=== PATIENT | male | born 1975 | race Caucasian/White ===

== ENCOUNTER 2016-09-25 16:52 | Inpatient (IN) | payer OTHER ==
--- NOTE | 2015-09-28 22:21 | NUR ---
MEDICATED WITH VANCOMYCIN BY ERIKA MORRIS. PATIENT RESTING IN BED, NO COMPLAINT OF PAIN 0/10.
[~2016-09-25] VITALS: Ht 193 cm; Wt 95.3 kg
[2016-09-25 16:55] VITALS: BP 129/87
--- NOTE | 2016-09-25 17:36 | NUR ---
PATIENT BIB EMS FROM [facility]ELD FOR LEFT EYE SWELLING AWAKE AND ALERT, TO LOBBY AWAITING BED ASSIGNMENT.
--- NOTE | 2016-09-25 18:32 | NUR ---
Patient ambulated to bed 7. RN evaluating patient at bedside.
--- NOTE | 2016-09-25 18:40 | NUR ---
PT BIB SELF C/O LEFT EYE PAIN X 2 DAYS AND WOUND ON L UPPER LEG X 1 MONTH; PT IS A&OX4, RR ARE EVEN AND UNLABORED; PT DENIES ANY CP OR SOB; ABD SOFT AND NON-TENDER TO TOUCH; PT DENIES ANY N/V/D OR URINARY COMPLAINTS; REDNESS AND SWELLING NOTED TO LEFT EYE; AWAITING FOR ER MD EVUALATION; ALL NEEDS MET AT THIS TIME; PROVIDED PT WITH WARM BLANKET; HOB ELEVATED FOR COMFORT; WILL CONTINUE TO MONITOR
--- NOTE | 2016-09-25 19:09 | NUR ---
precision agriculture technician at bedside.
--- NOTE | 2016-09-25 19:33 | NUR ---
X-ray at bedside.
--- NOTE | 2016-09-25 19:34 | NUR ---
Assumed care of patient. Pt in bed, resting comfortably at this time. VSS.
[2016-09-25 19:35] LABS: HEMATOCRIT 39.9 % (36-52); HEMOGLOBIN 12.8 g/dL (12.0-18.0); MEAN CORPUSCULAR HEMOGLOBIN 27 pg (27-31); MEAN CORPUSCULAR HGB CONC 32 g/dL (33-37); MEAN CORPUSCULAR VOLUME 85 fL (80-94); PLATELET COUNT (AUTO) 170 K/uL (140-450); RED BLOOD CELL COUNT(AUTO) 4.72 MIL/uL (4.20-6.10); RED CELL DISTRIBUTION WIDTH 15.9 % (11.6-13.7); WHITE BLOOD COUNT (AUTO) 3.8 K/uL (4.8-10.8)
[2016-09-25 19:47] LABS: ANION GAP 9.5 (8-16); POTASSIUM 4.5 mmol/L (3.5-5.1)
--- NOTE | 2016-09-25 19:47 | NUR ---
Dr. Caldera evaluating patient at bedside.
[2016-09-25 19:48] LABS: APPEARANCE,URINE CLEAR (CLEAR); BILIRUBIN,URINE NEGATIVE (NEGATIVE); BLOOD, URINE NEGATIVE (NEGATIVE); COLOR,URINE YELLOW (YELLOW); LEUKOCYTE ESTERASE ,URINE NEGATIVE (NEGATIVE); NITRITE, URINE NEGATIVE (NEGATIVE); PH,URINE 5.5 (5.0-9.0); UGLUCOSE TRACE (NEGATIVE)
[2016-09-25 19:53] LABS: ALBUMIN 3.4 g/dL (3.4-5.0); TOTAL BILIRUBIN 0.3 mg/dL (0.0-1.0)
[2016-09-25 19:54] LABS: EOSINOPHILS % (MANUAL) 3 % (0-4); LYMPHOCYTES % (MANUAL) 17 % (20-46); MONOCYTES % (MANUAL) 6 % (5-12)
--- NOTE | 2016-09-25 19:56 | NUR ---
Patient appears to be resting comfortably in bed. VSS. Lights dimmed. No distress noted. All needs addressed.
--- NOTE | 2016-09-25 19:59 | NUR ---
Patient taken to bed 05 via gurney per nurses.
[2016-09-25] MEDS ORDERED: PIPERACILLIN/TAZOBACTAM 3.375 GM in DEXTROSE 5% 50 ML IV ONE (20:00)
[2016-09-25] MEDS ORDERED: NACL 0.9% 1,000 ML IV ONE (20:00)
[2016-09-25] MEDS ORDERED: VANCOMYCIN 1,000 MG in DEXTROSE 5% 250 ML IV ONE (20:00)
--- NOTE | 2016-09-25 20:02 | NUR ---
Patient being evaluated by Dr. Caldera at bedside.
[2016-09-25] MEDS ORDERED: HYDROmorphone PFS 2 MG/ML SYR IVP ONE (20:05)
[2016-09-25] MEDS ORDERED: PIPERACILLIN/TAZOBACTAM 3.375 GM VIAL IV ONE (20:15)
[2016-09-25] MEDS ORDERED: VANCOMYCIN 1,000 MG VIAL ONE (20:15)
--- NOTE | 2016-09-25 20:34 | NUR ---
Pt report given to Jeet JAMES. Transfer of care at this time.
--- NOTE | 2016-09-25 21:18 | NUR ---
Patient back from CT via [facility].
[2016-09-25] MEDS ORDERED: ONDANSETRON 4 MG/2 ML VIAL IVP PRN (21:50)
--- NOTE | 2016-09-25 21:57 | NUR ---
Patient noted to have existing wounds upon arrival to ER. Photos taken of wound and placed in chart. Wound covered with dressing. Physician informed.
[2016-09-25] MEDS ORDERED: VANCOMYCIN PER PHARMACY MC PRN (22:00)
--- NOTE | 2016-09-25 22:45 | NUR ---
Patient will be admitted to care of . Admited to TELEMETRY. Will go to room 112B. Belongings list completed. Report to ERIKA DIETRICH.
--- NOTE | 2016-09-25 23:00 | NUR ---
ADMITTED THIS 41 YEAR OLD MALE FROM ER PER [facility] WITH CC OF LEFT EYE PAIN AND DX OF LEFT THIGH CELLULITIS, AMBULATORY WITH ASSIST TO BED, ASSESSMENT DONE, VITAL SIGNS STABLE, LEFT EYE SWOLLEN AND RED, INTACT, NO DRAINAGE NOTED, CHRONIC LEFT THIGH OPEN WOUND NOTED AND MULTIPLE SCABS TO BUE/BLE, CHEST AND SCROTAL AREA, PER PT IT STARTED LESIONS, WITH HX OF HIV+, VERBALIZED BEING HOMELESS AT THIS TIME AND WITH NO FAMILY MEMBERS, PAIN TO LEFT THIGH WOUND, WILL MEDICATE PRN, ORIENTED TO ROOM AND CALL LIGHT, SAFETY MEASURES IN PLACE CALL LIGHT WITHIN REACH.
[2016-09-25] MEDS: MORPHINE SULFATE 4 MG/ML SYR IVP PRN (23:06)
--- NOTE | 2016-09-25 23:30 | NUR ---
MEDICATED PRN FOR PAIN WITH MORPHINE IVP, WOUND CULTURE DONE AND SENT TO LAB, PT REFUSED TO PUT DRESSING TO LEFT THIGH WOUND, VERBALIZED TO LEAVE IT BURT, SANDWICH PROVIDED, CONSUMED 100%, ALL NEEDS ATTENDED.
[2016-09-26] VITALS: BP 129/76
--- NOTE | 2016-09-26 01:20 | NUR ---
PT VOIDING FREELY PER URINAL, WENT BACK TO SLEEP, NO SIGNS OF DISTRESS.
--- NOTE | 2016-09-26 03:49 | NUR ---
PT TACHYCARDIC ON TELE WITH HR-120'S, VITAL SIGNS STABLE, TEMP-102.1, PAGED DR DIMAS, WITH NEW ORDERS, WILL MEDICATE WITH TYLENOL PO, COOLING MEASURES STARTED.
[2016-09-26 04:00] VITALS: BP 131/58
[2016-09-26] MEDS ORDERED: PIPERACILLIN/TAZOBACTAM 2.25 GM VIAL IV ONE (04:00)
[2016-09-26] MEDS: ACETAMINOPHEN EXTRA STRENGTH 500 MG TAB PO PRN ×2 (04:00→17:56)
[2016-09-26] MEDS: VANCOMYCIN HCL IV SCH ×3 (04:55→20:38)
[2016-09-26] MEDS ORDERED: VANCOMYCIN 1,000 MG VIAL ONE (04:55)
[2016-09-26] MEDS: DEXTROSE 5% IV SCH ×3 (04:55→20:38)
[2016-09-26] MEDS ORDERED: PIPERACILLIN/TAZOBACTAM 2.25 GM in DEXTROSE 5% 50 ML IV SCH (05:00)
--- NOTE | 2016-09-26 05:00 | NUR ---
PT SLEEPING, EASILY AROUSABLE, NO SIGNS OF PAIN, TEMP-100.9, CONTINUE COOLING MEASURES, DUE VANCOMYCIN IVPB ADMINISTERED, MONITORED FOR REACTION. Addendum: 09/26/16 at 0510 by Franklyn Lopez RN TEMP-101.9
[2016-09-26] MEDS: MORPHINE SULFATE 4 MG/ML SYR IVP PRN ×2 (05:11→15:26)
--- NOTE | 2016-09-26 06:05 | NUR ---
TEMP-100.3, ST-100'S BPM ON TELE, CONTINUE COOLING MEASURES, IV VANCOMYCIN ON-GOING, MONITORED CLOSELY.
[2016-09-26 06:27] LABS: ALBUMIN 2.8 g/dL (3.4-5.0); ANION GAP 12.6 (8-16); CARBON DIOXIDE 22.8 mmol/L (21-32); CREATININE 1.3 mg/dL (0.7-1.3); MAGNESIUM 1.3 mg/dL (1.8-2.4); PHOSPHORUS 2.1 mg/dL (2.5-4.9); POTASSIUM 4.4 mmol/L (3.5-5.1); TOTAL BILIRUBIN 0.4 mg/dL (0.0-1.0)
--- NOTE | 2016-09-26 07:20 | NUR ---
PT EASILY AROUSABLE, NO SIGNS OF DISTRESS, REPORT GIVEN TO ERIKA AMADOR FOR CONTINUITY OF CARE.
--- NOTE | 2016-09-26 07:21 | NUR ---
RECEIVED REPORT FROM ERIKA DIETRICH. PT IS ROOM AIR. PT IS AAOX4. IV TO LEFT AC #20 PATENT AND INTACT. WOUND TO LEFT LOWER EXTREMITY NOTED. SWELLING NOTED TO LEFT EYE WITH LESIONS TO BUE AND BLE. SAFETY PRECAUTIONS IN PLACE WITH BED IN LOWEST POSITION AND SIDE RAILS UP X2. CALL LIGHT WITHIN REACH. WILL CONTINUE TO MONITOR.
[2016-09-26 08:00] VITALS: BP 122/70
[2016-09-26] MEDS ORDERED: ENOXAPARIN 40 MG/0.4 ML SYR SUBQ SCH (09:00)
[2016-09-26] MEDS: ENOXAPARIN 40 MG/0.4 ML SYR SUBQ SCH (09:14)
--- NOTE | 2016-09-26 09:20 | NUR ---
PT TOLERATED MEDS WELL.
--- NOTE | 2016-09-26 11:21 | NUR ---
CHECKED ON PT. ALL NEEDS MET AT THIS TIME. CALL LIGHT WITHIN REACH
[2016-09-26 12:00] VITALS: BP 100/52
--- NOTE | 2016-09-26 12:10 | NUR ---
PAGED DR. FORD REGARDING ZOSYN DOSING PER PHARMACY, NEW ORDERS RECEIVED.
--- NOTE | 2016-09-26 12:18 | NUR ---
CHECKED TEMP: 100.2, COOLING MEASURES INITIATED. WILL REASSESS.
[2016-09-26] MEDS: PIPER/TAZO 3.375GM/D5W PREMIX 50 ML IV SCH ×3 (12:33→23:01)
--- NOTE | 2016-09-26 12:33 | NUR ---
PT TOLERATED MEDS WELL.
[2016-09-26] MEDS ORDERED: PIPER/TAZO 2.25GM/D5W PREMIX 50 ML IV SCH (13:00)
--- NOTE | 2016-09-26 13:41 | NUR ---
PT TOLERATED MEDS WELL.
--- NOTE | 2016-09-26 14:00 | NUR ---
RECHECKED TEMP: 98.6. WILL CONTINUE TO MONITOR.
--- NOTE | 2016-09-26 15:30 | NUR ---
PT C/O PAIN 10/10 TO LEFT LEG. CHECKED BP: 108/60, HR: 108. ADMINISTERED MORPHINE ORDERED PRN. PT TOLERATED WELL. WILL REASSESS.
[2016-09-26 16:00] VITALS: BP 108/60
--- NOTE | 2016-09-26 17:51 | NUR ---
CHECKED TEMP: 101.9. WILL ADMINISTER TYLENOL ORDERED PRN AND INITIATE COOLING MEASURES.
--- NOTE | 2016-09-26 18:38 | NUR ---
RECHECKED TEMP: 99.8. WILL CONTINUE TO MONITOR.
--- NOTE | 2016-09-26 19:18 | NUR ---
ENDORSED CARE TO ERIKA DIETRICH. PT IN STABLE CONDITION.
--- NOTE | 2016-09-26 19:20 | NUR ---
RECEIVED PT AWAKE, NO DISTRESS NOTED, VITAL SIGNS TAKEN, TEMP-100.9, CONTINUE COOLING MEASURES, LEFT THIGH WOUND OPEN TO AIR, MINIMAL DRAINAGE NOTED, REFUSED DRESSING TO WOUND, PLAN OF CARE DISCUSSED, SAFETY MEASURES IN PLACE, CALL LIGHT WITHIN REACH.
[2016-09-26 20:00] VITALS: BP 100/53
--- NOTE | 2016-09-26 20:10 | NUR ---
PT SEEN AMBULATING TO SINK WITH STEADY GAIT, SANDWICH PROVIDED PER REQUEST, WITH GOOD APPETITE.
--- NOTE | 2016-09-26 20:30 | NUR ---
PT COMPLAINING OF RT ARM NUMBNESS AND BURNING PAIN, PT ABLE TO MOVE RT ARM WITHOUT DIFFICULTY, NO SWELLING/EDEMA NOTED, POSITIVE PULSES PALPATED, NORMAL CAP REFILL, PAGED DR SOUTH, ORDER RECEIVED FOR RT ARM US VENOUS TO R/O DVT AND ADDED NORCO PO PRN FOR PAIN, PT MADE AWARE, VERBALIZED UNDERSTANDING, COOLING MEASURES CONTINUED, ALL NEEDS ATTENDED.
[2016-09-26] MEDS: HYDROcodone/APAP 5/325 MG 1 TAB TAB PO PRN (20:38)
--- NOTE | 2016-09-26 21:12 | NUR ---
CALLED RADIOLOGY AND TALKED TO US PARUL CAMPOVERDE, SHE SAID IF IT'S ROUTINE ORDER IT MIGHT NOT BE DONE TONIGHT, CHANGED ORDER TO STAT, CHARGE NURSE STEVIE MADE AWARE.
--- NOTE | 2016-09-26 22:47 | NUR ---
ST-130'S ON TELE, PT SEEN WALKING INSIDE THE ROOM, DENIES ANY PAIN, PT WENT BACK TO BED, HR GOES BACK TO SR-90'S, VERBALIZED RT ARM FEELING BETTER, AWAITING VENOUS US TO BE DONE, MONITORED CLOSELY.
--- NOTE | 2016-09-26 23:20 | NUR ---
TALKED TO RORO TERAN TO FOLLOW UP VENOUS US, SHE SAID SHE IS CALLING THE ON-CALL US TECH, PT ACCIDENTALLY SPILLED ICE PACK ON THE BED, BED LINEN CHANGED, VITAL SIGNS TAKEN, TEMP-99.6, DENIES ANY PAIN, CONTINUE TO MONITOR CLOSELY.
[2016-09-27] VITALS: BP 117/75
[2016-09-27] MEDS: HYDROcodone/APAP 5/325 MG 1 TAB TAB PO PRN ×2 (03:59→10:07)
[2016-09-27 04:00] VITALS: BP 120/64
--- NOTE | 2016-09-27 04:00 | NUR ---
PT SLEEPING, EASILY AROUSABLE, VITAL SIGNS STABLE, TEMP-99.4, COMPLAINING OF LEFT THIGH PAIN, PT PREFER NORCO SAID IT WORKS BETTER, GIVEN PER REQUEST, MONITORED CLOSELY.
[2016-09-27] MEDS: PIPER/TAZO 3.375GM/D5W PREMIX 50 ML IV SCH ×3 (05:04→17:59)
[2016-09-27 05:11] LABS: BASOPHILS % (AUTO) 0.9 % (0.0-2.0); EOSINOPHILS # (AUTO) 0.3 K/uL (0-0.4); EOSINOPHILS % (AUTO) 7.3 % (0.0-4.0); HEMATOCRIT 34.2 % (36-52); HEMOGLOBIN 11.1 g/dL (12.0-18.0); LYMPHOCYTES # (AUTO) 0.3 K/uL (2.0-11.5); LYMPHOCYTES % (AUTO) 9.1 % (20.5-51.1); MEAN CORPUSCULAR HEMOGLOBIN 28 pg (27-31); MEAN CORPUSCULAR HGB CONC 33 g/dL (33-37); MEAN CORPUSCULAR VOLUME 85 fL (80-94); MONOCYTES # (AUTO) 0.2 K/uL (0.8-1.0); MONOCYTES % (AUTO) 5.8 % (1.7-9.3); NEUTROPHILS # (AUTO) 2.7 K/uL (1.8-7.7); PLATELET COUNT (AUTO) 143 K/uL (140-450); RED BLOOD CELL COUNT(AUTO) 4.03 MIL/uL (4.20-6.10); RED CELL DISTRIBUTION WIDTH 15.7 % (11.6-13.7); WHITE BLOOD COUNT (AUTO) 3.5 K/uL (4.8-10.8)
[2016-09-27 05:12] LABS: ANION GAP 8.4 (8-16); CARBON DIOXIDE 27.6 mmol/L (21-32); CREATININE 1.2 mg/dL (0.7-1.3)
[2016-09-27 05:32] LABS: NEUTROPHILS % (AUTO) 76.9 % (42.2-75.2)
[2016-09-27] MEDS: DEXTROSE 5% IV SCH ×4 (05:34→22:21)
[2016-09-27] MEDS: VANCOMYCIN HCL IV SCH ×4 (05:34→22:21)
--- NOTE | 2016-09-27 05:45 | NUR ---
VANCO TROUGH OF 10, DUE VANCOMYCIN IVPB ADMINISTERED, PT VERBALIZED STILL HAVING INTERMITTENT NUMBNESS TO RT ARM, ARM ABLE TO MOVE WITH NO RESTRICTION, PULSES PRESENT, MADE AWARE THAT VENOUS US RESULT OF RT ARM IS NEGATIVE, PT VERBALIZED UNDERSTANDING, CONTINUE TO MONITOR CLOSELY.
[2016-09-27] MEDS: MORPHINE SULFATE 2 MG/ML SYR IVP PRN ×2 (06:33→16:14)
--- NOTE | 2016-09-27 06:45 | NUR ---
PT IN PAIN, MEDICATED PRN FOR PAIN WITH MORPHINE IVP, LEFT THIGH WOUND WITH MINIMAL FOUL SMELLING DRAINAGE, RECOMMEND TO PT TO PUT DRESSING, COMPLIANT, WOUND COVERED WITH GAUZE 4X4 AND APPLIED ROLAN WRAP TO SECURE THE DRESSING, IV VANCOMYCIN INFUSING WELL, NO DISTRESS NOTED, MONITORED CLOSELY.
--- NOTE | 2016-09-27 07:20 | NUR ---
PT AWAKE, NO SIGNS OF DISTRESS, REPORT GIVEN TO ERIKA GRUBER FOR CONTINUITY OF CARE.
--- NOTE | 2016-09-27 07:22 | NUR ---
REPORT RECEIVED FROM NIGHT NURSE, PT A&OX4, NO COMPLAINTS AT INITIAL MEETING WITH PATIENT, SAFETY MEASURES ENSURED, WILL CONTINUE TO MONITOR AND IV PATENT AND INTACT.
[2016-09-27 08:00] VITALS: BP 98/53
[2016-09-27] MEDS: ENOXAPARIN 40 MG/0.4 ML SYR SUBQ SCH (09:00)
--- NOTE | 2016-09-27 09:08 | NUR ---
PATIENT HAS BEEN SCREENED AND CATEGORIZED HIGH NUTRITION RISK. PATIENT WILL BE SEEN WITHIN 1-2 DAYS OF ADMISSION. 09/26/16-09/27/[address]
[2016-09-27 12:00] VITALS: BP 99/61
--- NOTE | 2016-09-27 12:11 | NUR ---
CM NOTE INITIAL REVIEW FAXED TO [facility] / FAX# [phone], ATTN: MARGE #[phone]
[2016-09-27] MEDS ORDERED: MUPIROCIN 2% OINT 22 GM TUBE TP SCH (13:00)
[2016-09-27] MEDS ORDERED: CHLORHEXADINE GLUC 2% CLOTH TP SCH (13:00)
--- NOTE | 2016-09-27 13:14 | NUR ---
IV MEDS GIVEN, PATIENT STATED HE HAD PAIN AT 5/10, INFORMED THAT HE COULD RECEIVE TYLENOL RIGHT NOW, PT STATED HE WOULD WAIT UNTIL HE COULD RECEIVE NORCO IN AN HOUR.
--- NOTE | 2016-09-27 14:04 | NUR ---
IV MEDS GIVEN, WOUND AT LEFT LEG WRAPPED DUE TO YELLOW SCANT DRAINAGE. PT TEACHING CONCERNING MEDS AND DRESSING, PT VERBALIZED UNDERSTANDING.
--- NOTE | 2016-09-27 15:13 | NUR ---
09/27/16 RD INITIAL ASSESSMENT COMPLETED PLEASE REFER TO NUTRITION ASSESSMENT UNDER CARE ACTIVITY FOR ESTIMATED NUTRITIONAL NEEDS. 1. CONTINUE REGULAR DIET 2. RECOMMEND 500 MG OF VITMAIN C TO PROMOTE WOUND HEALING CHRISTINA DELCID RD
[2016-09-27 16:00] VITALS: BP 115/69
--- NOTE | 2016-09-27 16:34 | NUR ---
DR SAMANIEGO CALLED AND WAS INFORMED OF THE THE PATIENT'S LAB RESULTS, POSITIVE FOR MRSA, AND BETA HEMOLYTIC STREP GROUP A, AND THE SENSITIVITY NOT AVAILABLE YET.
--- NOTE | 2016-09-27 17:00 | NUR ---
DR SAMANIEGO CALLED AND INFORMED OF PATIENT PAIN IN RIGHT ARM, DR SAMANIEGO ORDERED DILAUDID 2MG EVERY 4 HOURS NOW.
[2016-09-27] MEDS: HYDROmorphone 1 MG/ML AMP IVP PRN ×2 (17:59→22:22)
--- NOTE | 2016-09-27 19:36 | NUR ---
RECD. RESTING IN BED, AWAKE, A/OX4. RESPIRATION EVEN AND UNLABORED. IV OF NS AT TKO INFUSING LEFT AC G20. LEFT THIGH WOUND COVERED WITH DRESSING, DRY AND INTACT. PLAN OF CARE FOR THE SHIFT DISCUSSED. VERBALIZED UNDERSTANDING. DENIES PAIN . Addendum: 09/27/16 at 2044 by Araceli Le LVN ERROR: TIME RECD. PATIENT 1936, NOT 1936.
--- NOTE | 2016-09-27 19:37 | NUR ---
POST REPORT GIVEN TO ANDERS PT RESTING IN BED WITH NO COMPLAINTS, SAFETY MEASURES IN PLACE.
--- NOTE | 2016-09-27 20:00 | NUR ---
Patient's Plan of Care was discussed and reviewed with COMPUTER GRAPHICS ILLUSTRATOR: YAQUELIN
--- NOTE | 2016-09-27 21:30 | NUR ---
COMPLAINT OF PAIN IN THE IV SITE, RESTLESS. WALKING BESIDE BED. FLUSHED IV, FLUSHING WELL.
[2016-09-27 22:21] VITALS: BP 122/71
--- NOTE | 2016-09-28 | NUR ---
SLEEPING COMFORTABLY IN BED.
[2016-09-28 02:26] VITALS: BP 106/66
--- NOTE | 2016-09-28 02:30 | NUR ---
SITTING IN BED, NOTED WITH IRRITABILITY. COMPLAINING OF PAIN IN THE LEFT THIGH, WILL MEDICATE ORDERED.
[2016-09-28] MEDS: HYDROmorphone 1 MG/ML AMP IVP PRN ×2 (02:35→06:38)
--- NOTE | 2016-09-28 04:30 | NUR ---
WALKING IN THE ROOM, RESPIRATION EVEN AND UNLABORED. CONDITION REMAIN STABLE. ENDORSED TO ERIKA AMADOR FOR CONTINUITY OF CARE.
--- NOTE | 2016-09-28 04:35 | NUR ---
RECEIVED REPORT FROM ANDERS BRANCH FOR CONTINUITY OF CARE. PATIENT IS ALERT AND ORIENTED X4, RESTING IN CHAIR AT BEDSIDE. PATIENT IS AGITATED REFUSED VITAL SIGNS. PATIENT STATES THAT HE WANTS TO TAKE OUT IV, INFORMED PATIENT THAT IT IS NEEDED FOR ANTIBIOTICS, STATES THAT "I DON'T WANT IT, THEY ARE NOT WORKING AND I WANT TO RIP OUT MY IV." EDUCATED PATIENT BUT STILL REFUSED ALL INTERVENTIONS. SAFETY/FALL/ CONTACT PRECAUTIONS IN PLACE. WILL CONTINUE TO MONITOR PATIENT FREQUENTLY.
--- NOTE | 2016-09-28 05:30 | NUR ---
DISCUSSED WITH PATIENT NEW IV LINE INSERTION, PATIENT AGREED STATES " LONG IT IS OFF MY ARM."
--- NOTE | 2016-09-28 06:15 | NUR ---
NEW IV LINE INSERTION TO LT HAND PATENT AND FLUSHED. WILL CONTINUE TO MONITOR.
[2016-09-28] MEDS: VANCOMYCIN HCL IV SCH (06:38)
[2016-09-28] MEDS: DEXTROSE 5% IV SCH (06:38)
--- NOTE | 2016-09-28 06:38 | NUR ---
PATIENT C/O PAIN, MEDICATED PER MD ORDER. PATIENT ALLOWED ANTIBIOTICS TO BE ADMINISTERED. WILL CONTINUE TO MONITOR.
--- NOTE | 2016-09-28 07:24 | NUR ---
ENDORSED PATIENT TO DAY RN FOR CONTINUITY OF CARE, PATIENT IS IN STABLE CONDITION.
--- NOTE | 2016-09-28 07:25 | NUR ---
RECEIVED REPORT FROM ERIKA AMADOR. PT IS SITTING IN BED, A/OX4, AMBULATORY, IV IN ON THE LT HAND, PATENT, INTACT, INFUSING WELL, PT HAS A DRESSING ON HIS LT UPPER THIGH, SCABS NOTED ON BILATERAL UPPER EXT. NO S/S OF RESPIRATORY DISTRESS OR DISCOMFORT NOTED, SAFETY/FALL PRECAUTIONS ARE IN PLACE, DISCUSSED PLAN OF CARE WITH PT, PT VERBALIZED UNDERSTANDING, CALL LIGHT WITHIN REACH, WILL CONTINUE TO MONITOR.
[2016-09-28 08:00] VITALS: BP 121/72
[2016-09-28] MEDS ORDERED: CLIN300C2 PO (08:18)
--- NOTE | 2016-09-28 09:05 | NUR ---
DR. FORD IN THE ROOM SPEAKING WITH PT.
--- NOTE | 2016-09-28 10:34 | NUR ---
WOUND CARE EVALUATION NOTES: REASON FOR EVALUATION: CHRONIC WOUND LEFT THIGH COMPLETE SKIN ASSESSMENT DONE ON THIS 41 Y/O HOMELESS MALE PATIENT TO [facility], WITH INITIAL DIAGNOSIS OF LEFT THIGH CELLULITIS. PAST MEDICAL HISTORY INCLUDE HIV, ASTHMA AND POLYSUBSTANCE ABUSE INCLUDING METHAMPHETAMINE. ALL ABOVE INFORMATION WAS OBTAINED FROM THE ADMISSION H&P. LABS ARE WBC 3.5, H/H 11.1/34.2, GLUCOSE 139, ALBUMIN 2.8 AND PT/INR 10.0/1.0. CURRENT MEDS INCLUDE DILAUDID, NORCO, LOVENOX, VANCOMYCIN AND MORPHINE. PATIENT IS AWAKE, ALERT, ORIENTED TO PERSON, PLACE, DATE AND TIME. SKIN WARM TO TOUCH WNL, TOENAILS WNL, WITH HAIR GROWTH, NO EDEMA AND +3 BILATERAL PEDAL PULSES. URINE AND BOWEL CONTINENT, ABLE TO AMBULATE TO THE RESTROOM CLAIMED. ABLE TO TURN SELF WITHOUT ASSISTANCE. PINK SCARRING NOTED TO RIGHT KNEE. INITIAL PLAN OF CARE AND PRESSURE PREVENTIVE MEASURES DISCUSSED, ABLE TO VERBALIZE UNDERSTANDING. INTEGUMENTARY: LEFT ANTERIOR DISTAL THIGH - OTHER ALTERED - PATIENT CLAIMED THAT IT STARTS WITH A BLISTER AND PROGRESS INTO A SCAB. IT WILL HEAL UP AND START BLISTERING ON ANOTHER SITE. RIGHT WRIST - OTHER ALTERED - MULTIPLE SITES - BLACK BROWN SCABS LFA - MULTIPLE BLACK BROWN SCABS NO FOLLOW UP NEEDED, PATIENT IS FOR D/C TODAY. D/C PICTURES OBTAINED AND PLACED IN THE CHART.
--- NOTE | 2016-09-28 11:20 | NUR ---
DISCHARGE INSTRUCTIONS GIVEN, ID WRIST BAND REMOVED, IV REMOVED, CATHETER TIP INTACT. PT STABLE UPON DISCHARGE.
--- NOTE | 2016-09-28 12:09 | NUR ---
FAXED CONCURRENT REVIEW TO [facility] [phone] PHONE MARGE [phone]
[2016-09-30 09:08] LABS: HEPATITIS A ANTIBODY IGM Negative (Negative); HEPATITIS B CORE AB TOTAL Negative (Negative); HEPATITIS B SURFACE AB Non Reactive (.); HEPATITIS B SURFACE ANTIGEN Negative (Negative)
== END 2016-09-28 11:20 | disposition home or self-care (01) | DRG 892 ==
LOC: MED 16:52 → MTU 21:56
PROVIDERS: ADMIT Hospitalist; ATTEND Hospitalist
DX: A41.9 Sepsis, unspecified organism (principal); B20 Human immunodeficiency virus [HIV] disease; L03.116 Cellulitis of left lower limb; L97.129 Non-pressure chronic ulcer of left thigh with unspecified severity; D64.9 Anemia, unspecified; B95.62 Methicillin resistant Staphylococcus aureus infection as the cause of diseases classified elsewhere; F17.210 Nicotine dependence, cigarettes, uncomplicated; L03.211 Cellulitis of face; L03.213 Periorbital cellulitis; J45.909 Unspecified asthma, uncomplicated; F15.90 Other stimulant use, unspecified, uncomplicated; Z90.49 Acquired absence of other specified parts of digestive tract; Z88.2 Allergy status to sulfonamides
CPT/HCPCS: 36415; 70486; 71010; 80048; 80053; 80202; 81003; 83605; 83735; 84100; 85025; 85610; 86360; 86702; 86704; 86706; 86708; 86709; 86803; 87040; 87070; 87077; 87081; 87186; 87340; 93971; 96365; 96375; 99285; J1170; J1650; J2270; J2543; J3370; J7030; J7060; Q0092

== ENCOUNTER 2017-02-28 17:49 | Inpatient (IN) | payer OTHER ==
[~2017-02-28] VITALS: Ht 193 cm; Wt 90.7 kg
[~2017-02-28 17:49] MED LIST: ACET-1182 PO; ACET-9525 PO; LORA-476 PO; Vancomycin Per Pharmacy MC
[2017-02-28 17:54] VITALS: BP 114/80
--- NOTE | 2017-02-28 17:55 | NUR ---
PATIENT TAKEN TO BED 3 BY EMS
--- NOTE | 2017-02-28 18:05 | NUR ---
PATIENT PRESENTS TO ED WITH GENERALIZEE WEAKNESS 10 DAYS . PT STATES HE PASSED OUT 4 DAYS AGO, HE HAS A HX OF SZ LAST SZ WAS 1 WEEK AGO . DENIES N/V/D; SKIN IS PINK/WARM/DRY; AAOX4 WITH EVEN AND STEADY GAIT; LUNGS CLEAR BL; HR EVEN AND REGULAR; PT DENIES ANY FEVER, CP AT THIS TIME; PATIENT STATES PAIN OF 0/10 AT THIS TIME; VSS; PATIENT POSITIONED FOR COMFORT; HOB ELEVATED; BEDRAILS UP X2; BED DOWN. ER MD MADE AWARE OF PT STATUS.
[2017-02-28 19:18] LABS: BASOPHILS % (AUTO) 0.6 % (0.0-2.0); EOSINOPHILS % (AUTO) 0.6 % (0.0-4.0); HEMATOCRIT 26.5 % (36-52); HEMOGLOBIN 8.6 g/dL (12.0-18.0); LYMPHOCYTES # (AUTO) 0.3 K/uL (2.0-11.5); LYMPHOCYTES % (AUTO) 7.3 % (20.5-51.1); MEAN CORPUSCULAR HEMOGLOBIN 27 pg (27-31); MEAN CORPUSCULAR HGB CONC 33 g/dL (33-37); MEAN CORPUSCULAR VOLUME 82 fL (80-94); MONOCYTES # (AUTO) 0.3 K/uL (0.8-1.0); MONOCYTES % (AUTO) 6.5 % (1.7-9.3); NEUTROPHILS # (AUTO) 3.6 K/uL (1.8-7.7); PLATELET COUNT (AUTO) 246 K/uL (140-450); RED BLOOD CELL COUNT(AUTO) 3.24 MIL/uL (4.20-6.10); RED CELL DISTRIBUTION WIDTH 19.5 % (11.6-13.7); WHITE BLOOD COUNT (AUTO) 4.2 K/uL (4.8-10.8)
--- NOTE | 2017-02-28 19:30 | NUR ---
PT LAYING IN BED, SIDE RAILS UP X2, WILL CONTINUE TO MONITOR.
[2017-02-28 19:40] LABS: PROTHROMBIN TIME 10.7 secs (10.8-13.4)
[2017-02-28 19:46] LABS: ANION GAP 10.1 (8-16); CARBON DIOXIDE 26.7 mmol/L (21-32); POTASSIUM 3.8 mmol/L (3.5-5.1)
[2017-02-28 19:50] LABS: ALBUMIN 2.4 g/dL (3.4-5.0); TOTAL BILIRUBIN 0.5 mg/dL (0.0-1.0)
--- NOTE | 2017-02-28 21:30 | NUR ---
PT RESTING COMFORTABLY IN BED, WILL CONTINUE TO MONITOR.
[2017-02-28 22:02] LABS: APPEARANCE,URINE CLEAR (CLEAR); BILIRUBIN,URINE 1+ (NEGATIVE); BLOOD, URINE NEGATIVE (NEGATIVE); COLOR,URINE YELLOW (YELLOW); LEUKOCYTE ESTERASE ,URINE NEGATIVE (NEGATIVE); NITRITE, URINE NEGATIVE (NEGATIVE); UGLUCOSE NEGATIVE (NEGATIVE)
[2017-02-28] MEDS ORDERED: ONDANSETRON 4 MG/2 ML VIAL IVP PRN (22:35)
[2017-02-28] MEDS ORDERED: ACETAMINOPHEN 325 MG TAB PO PRN (22:35)
[2017-02-28] MEDS ORDERED: LORazepam 1 MG TAB PO PRN (22:40)
[2017-02-28 23:10] LABS: RBC,URINE 0-5 (RARE) /HPF (0-5); WBC,URINE 0-5 (RARE) /HPF (0-5)
--- NOTE | 2017-02-28 23:16 | NUR ---
Patient will be admitted to care of DR LEMOS . Admited to TELE. Will go to room 116. Belongings list completed. Report to LUDY.
[2017-02-28] MEDS: NACL 0.9% 1,000 ML IV SCH (23:20)
--- NOTE | 2017-02-28 23:20 | NUR ---
RECEIVED PT FROM ER VIA [facility]O PT IS AAOX4 AMBULATES WITH ASSISTAND AND A CANE HL ON RT FA PATENT ON TELEMETRY ST PT COMPLAINTS OF GENERALIZED WEAKNESS AND PRODUCTIVE COUGH PT IS ORIENTED TO THE FLOOR CALL LIGHT WITHIN [facility] MRSA NARES PROTOCOL SENT TO LAB
[2017-02-28 23:30] VITALS: BP 107/71
--- NOTE | 2017-02-28 23:45 | NUR ---
PT CAN NOT REMEMBER NAME OF MEDICATION THAT HE USUALLY TAKE FOR HIV
--- NOTE | 2017-03-01 01:35 | NUR ---
PT SLEEPING WELL NOT SOB NOTED IV FLUIDS INFUSING WELL ON RT FA PT VERBALIZED THAT DOES NOT REMEMBER THE NAME OF HIV MEDICATION THAT USUALLY HAVE BEEN TAKEN
[2017-03-01 04:00] VITALS: BP 108/66
--- NOTE | 2017-03-01 04:00 | NUR ---
PT VOIDING WELL YELLOW URINE ON TELEMETRY ST NOT FEVER IV ON RT FA INFUSING WELL DENIES ANY PAIN AT THIS TIME
--- NOTE | 2017-03-01 07:02 | NUR ---
PT RESTING ON BED NOT DISTRESS NOTED ON TELE ST, IV ON RT FA INFUSING WELL
--- NOTE | 2017-03-01 07:05 | NUR ---
RECEIVED REPORT FROM HADOOP APPLICATION DEVELOPER NURSE, PT IS RESTING IN BED, A/OX4, AMBULATES WITH ASSIST, IV IS ON THE RIGHT FOREARM, PATENT, INTACT, FLUSHING WELL, PT IS HAS BILATERAL LOWER EXT SCARES, NO S/S OF RESPIRATORY DISTRESS OR DISCOMFORT NOTED, DISCUSSED PLAN OF CARE WITH PT, PT VERBALIZED UNDERSTANDING, SAFETY/FALL/SEIZURE PRECAUTIONS ARE IN PLACE, CALL LIGHT IS WITHIN REACH, WILL CONTINUE TO MONITOR.
[2017-03-01 07:35] LABS: BASOPHILS % (AUTO) 0.5 % (0.0-2.0); HEMATOCRIT 25.5 % (36-52); HEMOGLOBIN 8.1 g/dL (12.0-18.0); LYMPHOCYTES # (AUTO) 0.4 K/uL (2.0-11.5); LYMPHOCYTES % (AUTO) 13.2 % (20.5-51.1); MEAN CORPUSCULAR HEMOGLOBIN 26 pg (27-31); MEAN CORPUSCULAR HGB CONC 32 g/dL (33-37); MEAN CORPUSCULAR VOLUME 83 fL (80-94); MONOCYTES # (AUTO) 0.2 K/uL (0.8-1.0); MONOCYTES % (AUTO) 6.3 % (1.7-9.3); NEUTROPHILS # (AUTO) 2.7 K/uL (1.8-7.7); PLATELET COUNT (AUTO) 227 K/uL (140-450); RED BLOOD CELL COUNT(AUTO) 3.07 MIL/uL (4.20-6.10); RED CELL DISTRIBUTION WIDTH 19.7 % (11.6-13.7); WHITE BLOOD COUNT (AUTO) 3.3 K/uL (4.8-10.8)
[2017-03-01 07:55] LABS: ALBUMIN 2.1 g/dL (3.4-5.0); ANION GAP 10.3 (8-16); CARBON DIOXIDE 24.7 mmol/L (21-32); CREATININE 0.8 mg/dL (0.7-1.3); MAGNESIUM 1.7 mg/dL (1.8-2.4); TOTAL BILIRUBIN 0.5 mg/dL (0.0-1.0)
[2017-03-01 08:00] VITALS: BP 116/71
[2017-03-01] MEDS: HYDROcodone/APAP 5/325 MG 1 TAB TAB PO PRN ×2 (09:32→15:45)
[2017-03-01] MEDS: ENOXAPARIN 40 MG/0.4 ML SYR SUBQ SCH (09:38)
--- NOTE | 2017-03-01 10:17 | NUR ---
PATIENT HAS BEEN SCREENED AND CATEGORIZED LOW NUTRITION RISK. PATIENT WILL BE SEEN WITHIN 7 DAYS OF ADMISSION. 03/06/[address]
[2017-03-01] MEDS: NACL 0.9% 1,000 ML IV SCH (11:58)
[2017-03-01 12:00] VITALS: BP 114/68
[2017-03-01] MEDS ORDERED: MAG SULF 2000 MG/WATER PREMIX 50 ML IV SCH (13:00)
[2017-03-01] MEDS ORDERED: LORazepam 1 MG TAB PO PRN (13:00)
--- NOTE | 2017-03-01 15:09 | NUR ---
PT OFF UNIT TO HAVE CT-SCAN OF THE CHEST DONE.
--- NOTE | 2017-03-01 15:44 | NUR ---
PT RETURNED FROM CT-SCAN. PT IN STABLE CONDITION.
[2017-03-01 15:59] LABS: BARBITURATE, URINE NEG. ng/ml (NEG <=200); BENZODIAZEPINE, URINE NEG. ng/mL (NEG <=200); CANNABINOID, URINE NEG. ng/mL (NEG <=50); COCAINE, URINE NEG. ng/mL (NEG <=300); OPIATE, URINE NEG. ng/mL (NEG <=2000); PHENCYCLIDINE SCREEN,URINE NEG. ng/mL (NEG <=25)
[2017-03-01 16:00] VITALS: BP 96/57
--- NOTE | 2017-03-01 18:30 | NUR ---
RECEIVED PHONE CALL FROM LAB, PRBC ARE READY TO BE PICKED UP.
--- NOTE | 2017-03-01 19:15 | NUR ---
ENDORSED PT TO JUNIOR MECHANICAL ENGINEER NURSE FOR CONTINUITY OF CARE, PT STABLE AT THIS TIME.
--- NOTE | 2017-03-01 19:16 | NUR ---
RECEIVED PT FROM ELIEL RN PT IS AAOX4 COMPLAINTS OF GENERALIZED WEAKNESS ON TELEMETRY ST IV ON RT FA INFUSING WELL INITIAL ASSESSMENT DONE
[2017-03-01 20:00] VITALS: BP 117/77
--- NOTE | 2017-03-01 22:30 | NUR ---
FIRST UNIT PRBC STARTED PT DENIES ANY PAIN
[2017-03-02] VITALS: BP 135/80
--- NOTE | 2017-03-02 01:00 | NUR ---
PT SLEEPING ON TELMETRY ST NOT SOB NOTED DENIES ANY PAIN VOIDING WELL YELLOW URINE
--- NOTE | 2017-03-02 01:30 | NUR ---
FIRST UNIT OF BLOOD FINISH NOT REACTION NOTED
[2017-03-02 04:00] VITALS: BP 129/86
--- NOTE | 2017-03-02 04:00 | NUR ---
LINEN CHANGED IV ON RT FA INFUSING WELL ON TELE ST REPOSITIONED Q2H
[2017-03-02] MEDS: HYDROcodone/APAP 5/325 MG 1 TAB TAB PO PRN ×3 (05:13→18:56)
[2017-03-02] MEDS: NACL 0.9% 1,000 ML IV SCH ×2 (05:32→14:34)
--- NOTE | 2017-03-02 07:05 | NUR ---
PT REMAIN STABLE DENIES ANY PAIN IV ON RT FA INFUSIG WELL NOT DISTRESS NOTE
--- NOTE | 2017-03-02 07:15 | NUR ---
RECEIVED REPORT ON PATIENT FROM SERVICE WRITER ADVISOR NURSE AT BEDSIDE. PATIENT APPEARS TO BE IN STABLE CONDITION. PATIENT STILL FEELS WEAK BUT DOES NOT COMPLAIN OF PAIN AT THIS TIME. PATIENT HAS NO RESPIRATORY DISTRESS. LOWERED PATIENT'S BED AND RAISED IT TO SEMI-FOWLERS. PLACED CALL LIGHT IN REACH OF PATIENT. WILL CONTINUE TO MONITOR PATIENT.
[2017-03-02 07:49] LABS: ANION GAP 11.4 (8-16); CARBON DIOXIDE 23.3 mmol/L (21-32); CREATININE 0.9 mg/dL (0.7-1.3); POTASSIUM 4.7 mmol/L (3.5-5.1); TOTAL BILIRUBIN 0.4 mg/dL (0.0-1.0)
[2017-03-02 07:54] LABS: BASOPHILS % (AUTO) 0.5 % (0.0-2.0); HEMATOCRIT 25.3 % (36-52); HEMOGLOBIN 8.1 g/dL (12.0-18.0); LYMPHOCYTES # (AUTO) 0.4 K/uL (2.0-11.5); LYMPHOCYTES % (AUTO) 10.4 % (20.5-51.1); MEAN CORPUSCULAR HEMOGLOBIN 27 pg (27-31); MEAN CORPUSCULAR HGB CONC 32 g/dL (33-37); MEAN CORPUSCULAR VOLUME 84 fL (80-94); MONOCYTES # (AUTO) 0.3 K/uL (0.8-1.0); MONOCYTES % (AUTO) 6.9 % (1.7-9.3); NEUTROPHILS # (AUTO) 3.5 K/uL (1.8-7.7); NEUTROPHILS % (AUTO) 81.2 % (42.2-75.2); PLATELET COUNT (AUTO) 249 K/uL (140-450); RED BLOOD CELL COUNT(AUTO) 3.02 MIL/uL (4.20-6.10); RED CELL DISTRIBUTION WIDTH 17.8 % (11.6-13.7); WHITE BLOOD COUNT (AUTO) 4.2 K/uL (4.8-10.8)
[2017-03-02 08:16] VITALS: BP 111/69
[2017-03-02] MEDS: ENOXAPARIN 40 MG/0.4 ML SYR SUBQ SCH (09:00)
[2017-03-02 12:00] VITALS: BP 108/67
--- NOTE | 2017-03-02 12:52 | NUR ---
P.T. NOTES CHART REVIEWED, CLEARED BY NRSG, PT FOUND AWAKE, ALERT, REQUESTED NOT TO BE SEEN FOR P.T. TODAY"I FEEL TOO WEAK TO DO ANYTHING, I THINK IT WAS FROM MY BLOOD TRANSFUSION," PT EDUCATED ON BENEFITS OF REHAB BUT CONTINUED TO REFUSE, NURSE AWARE. PVE
--- NOTE | 2017-03-02 14:23 | NUR ---
CM NOTE INITIAL REVIEW FAXED TO [facility] [phone] MARGE # [phone]
[2017-03-02 16:00] VITALS: BP 115/67
--- NOTE | 2017-03-02 17:37 | NUR ---
NOTIFIED DR LEMOS ABOUT PATIENT'S HEMOGLOBIN LEVEL OF 8.7. PER DR LEMOS, CANCEL THE TRANSFUSION ORDER
--- NOTE | 2017-03-02 19:10 | NUR ---
GAVE REPORT TO NIGHTSHIFT NURSE AT BEDSIDE. PATIENT IS ASLEEP BUT AROUSABLE AT THIS TIME. PATIENT SHOWS NO SIGNS OF RESPIRATORY DISTRESS. PATIENT WAS MEDICATED WITH NORCO AT 1856. ENDORSED CARE TO NIGHTSHIFT NURSE TO REASSESS PAIN LEVELS AND TO MONITOR PATIENT. PATIENT STILL HAS GENERAL WEAKNESS. PATIENTS CALL LIGHT MONITOR IS NEARBY. INSTRUCTED PATIENT TO CALL THE NIGHTSHIFT NURSE IF HE NEEDS ANYTHING. PATIENT IS COMFORTABLE WITH BED IN LOWEST SETTING IN SEMI-FOWLERS POSITION. PATIENT IS IN STABLE CONDITION AT THIS TIME.
--- NOTE | 2017-03-02 19:11 | NUR ---
PATIENT REPORT RECEIVED FROM MORNING NURSE. PATIENT IS ASLEEP RESTING IN BED. NO SIGNS AND SYMPTOMS OF DISTRESS NOTED. BREATHING EVEN AND UNLABORED. IV SITE NOTED ON RIGHT FOREARM, IVF INFUSING WELL. BED IN LOWEST POSITION, SIDE RAILS UP AND CALL LIGHT WITHIN REACH. WILL CONTINUE TO MONITOR.
[2017-03-02 20:00] VITALS: BP 110/70
[2017-03-03] VITALS: BP 105/59
--- NOTE | 2017-03-03 | NUR ---
CHECKED ON PATIENT. PATIENT IS ASLEEP. NO SIGNS AND SYMPTOMS OF DISTRESS NOTED. BED IN LOWEST POSITION, SIDE RAILS UP AND CALL LIGHT WITHIN REACH. WILL CONTINUE TO MONITOR.
[2017-03-03] MEDS: NACL 0.9% 1,000 ML IV SCH (03:26)
[2017-03-03 04:00] VITALS: BP 113/67
[2017-03-03] MEDS: HYDROcodone/APAP 5/325 MG 1 TAB TAB PO PRN ×2 (06:13→14:10)
--- NOTE | 2017-03-03 07:13 | NUR ---
RECEIVED PATIENT REPORT. PATIENT IS IN STABLE CONDITION AND SHOWS NO SIGNS OF PAIN. PATIENT IS ASLEEP AT THE MOMENT BUT IS AROUSABLE. CALL LIGHT IS WITHIN REACH OF PATIENT. INSTRUCTED PATIENT TO CALL IF HE NEEDS TO GET UP. PATIENT IS IN SEMIFOWLERS POSITION WITH BED IN LOWEST SETTING. ISOLATION SIGNS ARE IN PLACE. WILL CONTINUE TO MONITOR PATIENT.
--- NOTE | 2017-03-03 07:13 | NUR ---
PATIENT REPORT GIVEN TO MORNING NURSE. PATIENT IS IN STABLE CONDITION
[2017-03-03 07:50] VITALS: BP 112/71
[2017-03-03 07:53] LABS: BASOPHILS % (AUTO) 0.6 % (0.0-2.0); EOSINOPHILS % (AUTO) 0.9 % (0.0-4.0); HEMATOCRIT 28.1 % (36-52); LYMPHOCYTES # (AUTO) 0.3 K/uL (2.0-11.5); LYMPHOCYTES % (AUTO) 7.4 % (20.5-51.1); MEAN CORPUSCULAR HEMOGLOBIN 27 pg (27-31); MEAN CORPUSCULAR HGB CONC 32 g/dL (33-37); MEAN CORPUSCULAR VOLUME 83 fL (80-94); MONOCYTES # (AUTO) 0.2 K/uL (0.8-1.0); MONOCYTES % (AUTO) 5.9 % (1.7-9.3); NEUTROPHILS # (AUTO) 3.6 K/uL (1.8-7.7); NEUTROPHILS % (AUTO) 85.2 % (42.2-75.2); PLATELET COUNT (AUTO) 228 K/uL (140-450); RED BLOOD CELL COUNT(AUTO) 3.38 MIL/uL (4.20-6.10); RED CELL DISTRIBUTION WIDTH 18.5 % (11.6-13.7); WHITE BLOOD COUNT (AUTO) 4.1 K/uL (4.8-10.8)
[2017-03-03 08:14] LABS: ALBUMIN 2.1 g/dL (3.4-5.0); ANION GAP 11.9 (8-16); CARBON DIOXIDE 24.3 mmol/L (21-32); CREATININE 0.7 mg/dL (0.7-1.3); POTASSIUM 4.2 mmol/L (3.5-5.1); TOTAL BILIRUBIN 0.2 mg/dL (0.0-1.0)
[2017-03-03] MEDS: ENOXAPARIN 40 MG/0.4 ML SYR SUBQ SCH (09:30)
--- NOTE | 2017-03-03 09:40 | NUR ---
PATIENT IS AWAKE AND JUST ATE HIS BREAKFAST. PATIENT SAYS THAT HE STILL FEELS WEAK. INSTRUCTED PATIENT TO CALL IF HE NEEDS ASSISTANCE WITH ANYTHING. PATIENT IS IN STABLE CONDITION AT THIS TIME.
--- NOTE | 2017-03-03 10:39 | NUR ---
I contact [facility] to request for a hospice evaluation for patient. I spoke to admissions nurse Puja provided Patient information requested and scheduled for an assessment with patient for today. RN agreed stating that she will be sending a nurse to speak to patient between 1:00-5:00pm today. Walking Dragline Operator/heel caser will follow up as needed.
--- NOTE | 2017-03-03 11:00 | NUR ---
I met with patient briefly to inform him that a referral to [facility] hospice has been made and that he will have an agency education courses sales representative come see him and talk about the services they can provide for patient at about 13:00 today. Patient was cooperative and willing to meet with [facility]. Stated feeling grateful to Play Therapist for assistance. lorrie
[2017-03-03 12:00] VITALS: BP 107/68
--- NOTE | 2017-03-03 12:23 | NUR ---
CM NOTE CONCURRENT REVIEW FAXED TO [facility] [phone] MARGE # [phone]
--- NOTE | 2017-03-03 13:00 | NUR ---
BHAVANA vivas KnowRerussell call me stating that after evaluation with patient he will be discharge to hospice care at about 13:00 Addendum: 03/03/17 at 1524 by Jaylin Pacheco CM correction for wrong entree for D/C time discharge to hospice care at about 15:00
--- NOTE | 2017-03-03 14:23 | NUR ---
1330 BHAVANA FROM [facility] HERE TO EVALUATE PT. 1415 INFORMED PT THAT [facility] ALSO CONTRACTS WITH [facility] AND THAT PT DOES HAVE A CHOICE OF AGENCIES. PT STATED THAT HE LIKES [facility] AND THAT THEY DO HAVE A BED FOR HIM AT [place] WHERE HE WAS BEFORE. PT EXPRESSED THAT HE APPRECIATES THE SERVICE HE KNOWS HE IS TOO WEAK TO [place]URN [place].
--- NOTE | 2017-03-03 15:06 | NUR ---
CM NOTE ORDER FOR HOSPICE FAXED TO [facility]. RODOLFO BIRD AWARE
[2017-03-03 16:00] VITALS: BP 107/73
[2017-03-03 18:51] VITALS: BP 107/73
--- NOTE | 2017-03-03 19:05 | NUR ---
[facility] GAVE PATIENT REPORT
--- NOTE | 2017-03-03 19:33 | NUR ---
PATIENT DISCHARGED TO [facility] WITH [facility]. PATIENT LEFT WITH ALL HIS BELONGINGS AND DISCHARGE PAPERS. IV LINE DISCONTINUED. PATIENT LEFT IN STABLE CONDITION
== END 2017-03-03 19:30 | disposition hospice, inpatient (51) | DRG 861 ==
LOC: MED 17:49 → MTU 20:38 → OBSVTOIN 22:32 → MTU 23:48
PROVIDERS: ADMIT Hospitalist; ATTEND Hospitalist
PROC: 30233N1 Transfusion of Nonautologous Red Blood Cells into Peripheral Vein, Percutaneous Approach (ICD-10-PCS; principal; 2017-03-01)
DX: R53.1 Weakness (principal); E43 Unspecified severe protein-calorie malnutrition; D64.9 Anemia, unspecified; F15.90 Other stimulant use, unspecified, uncomplicated; E11.9 Type 2 diabetes mellitus without complications; F17.210 Nicotine dependence, cigarettes, uncomplicated; J45.909 Unspecified asthma, uncomplicated; Z21 Asymptomatic human immunodeficiency virus [HIV] infection status; Z59.0 Homelessness; Z88.5 Allergy status to narcotic agent; Z88.2 Allergy status to sulfonamides; Z91.19 Patient's noncompliance with other medical treatment and regimen; Z68.24 Body mass index [BMI] 24.0-24.9, adult
CPT/HCPCS: 99285; G0378; 36415; 71045; 71270; 80053; 80305; 81001; 82550; 82553; 83605; 83735; 83880; 84484; 85018; 85025; 85610; 85730; 86360; 86886; 86900; 86901; 86920; 87040; 87070; 87081; 87086; 87205; 87536; 93005; 97110; 97116; 97140; 97530; J1650; J3475; J7030; P9016; Q9967